=== PATIENT | male | born 1950 | race Caucasian/White ===

== ENCOUNTER 2023-06-09 14:42 | Inpatient (IN) ==
--- NOTE | 2023-06-09 15:04 | ED Triage Note ---
Date of Service June 09, 2023 Provider in Triage Author: Negro Gonzales History of Present Illness This patient was briefly evaluated while in triage. An abbreviated physical exam was performed. This patient is a 73-year-old Male who presents to the ED for evaluation of lower abdominal pain that has progressively worsened since this past Wednesday. The patient reports that his abdomen is now distended. He does have a prior history of diverticulitis and colectomy. Patient also has had a prior history of ruptured appendicitis. The patient was seen by his PCP yesterday, and started on Cipro 500 mg twice daily. The patient rates his discomfort a 2 out of 10 now, but initially had pain rated a 7 out of 10. Patient reports chills. He denies nausea. Physical Exam CONSTITUTIONAL: Healthy and well nourished. HEENT: Normocephalic, atraumatic. No scleral icterus or conjunctival injection. CARDIOVASCULAR: Regular rate and rhythm with no murmurs, rubs or gallops. GASTROINTESTINAL: Bowel sounds present in all quadrants. Patient has left lower quadrant tenderness to palpation. INTEGUMENTARY: No rash or other significant dermatologic conditions noted. HEMATOLOGIC: No ecchymosis or petechiae. PSYCHIATRIC: Positive affect. NEUROLOGIC: No focal neurologic deficits noted. Initial orders for labs and / or imaging were placed and patient was placed in the waiting area until a bed is available. Please see further documentation for the full ED course.
--- NOTE | 2023-06-09 16:04 | Emergency Department Note ---
Impression & Plan Small bowel obstruction, Leukocytosis, Abdominal pain ED Provider Note NAME: JIMMY MENESES AGE: 73 SEX: M : 1950 ARRIVES VIA: Walk-In INFORMANT: Patient ED PROVIDER(S): German Prather DO CHIEF COMPLAINT: abdominal pain HPI: Patient is a 73-year-old male who presents to the ER for abdominal pain which has been present for the past several days. He notes it got significantly worse on Wednesday. He saw his PCP and placed him on Cipro. Patient has been having abdominal fullness and nausea. He has not had a bowel movement since Wednesday. He is not passing any gas. Previous history of a ruptured appendectomy and a bowel resection. He notes this feels like his diverticulitis but a little worse. Currently he is comfortable. ADDITIONAL HISTORY OBTAINED: Per HPI Chronic Medical/Social Conditions Affecting Care: Per HPI PAST MEDICAL HISTORY:See Below PAST SURGICAL HISTORY:See Below FAMILY HISTORY:See Below SOCIAL HISTORY:See Below HOME MEDICATIONS:See Below ALLERGIES:See Below VITALS:See Below PHYSICAL EXAMINATION: GENERAL: Sitting up in bed, alert, well appearing, well nourished, no distress, non-toxic EYE EXAM: normal conjunctiva. OROPHARYNX: mucous membranes are moist LUNGS: Clear to auscultation. Normal chest wall mechanics HEART: no murmurs, S1 normal and S2 normal ABDOMEN: abdomen soft, non-tender, normo-active bowel sounds, no masses, no rebound or guarding. BACK: Back is symmetrical on inspection and there is no deformity, no midline tenderness, no CVA tenderness. SKIN: no rashes and no bruising UPPER EXTREMITIES: upper extremities are grossly normal. LOWER EXTREMITIES: No pitting edema. NEURO EXAM: Normal sensorium, cranial nerves II-XII grossly intact, normal speech, no gross weakness of arms, no gross weakness of legs. MEDICAL DECISION MAKING: Patient is a 73-year-old male who presents ER for the above-stated complaint. IV was established blood was obtained. Labs show mild leukocytosis of 13,000. No significant anemia. BMP with a creatinine 1.5. LFTs bilirubin was unremarkable. Lipase was normal. CT abdomen pelvis shows a high-grade small bowel obstruction. Patient was given morphine and Zofran. Discussed case with general surgery patient was evaluated by Haroldo Contreras. Discussed the case with the hospitalist for further evaluation management treatment and admission. NG placed by general surgery. KUB confirms placement. Consults/Care Managements Discussions: Per [facility] Triage Nursing notes reviewed. Limited review of prior medical records performed Vital Signs: reviewed and remarkable for HTN Differential diagnosis: Differential diagnoses includes but is not limited to gastritis, peptic ulcer disease, GERD, gallbladder disease, pancreatitis, small bowel obstruction, appendicitis, diverticulitis, hernia, urinary tract infection, torsion, perforation, trauma, infectious. ER treatment provided: See below Diagnostics interpreted by me include EKG and cardiac monitoring as listed below: -Cardiac Monitoring: An order was placed for continuous cardiac monitoring. The monitor shows a rate of 70 with sinus rhythm. -ECG: none -Laboratory studies:Interpreted by me as stated above in MDM and shown below. Imaging studies: Xrays: As interpreted by me:none CTs show: CT abdomen pelvis per my preliminary interpretation showed multiple areas of air-fluid levels and dilated bowel CT of the pelvis per radiology as described above in MDM high-grade small bowel obstruction Procedures:none Critical Care: None Past Med/Surg History Medical History Hypothyroidism Compressed cervical disc Dyslipidemia HTN (hypertension) Surgical History H/O hernia repair History of appendectomy Social History Smoking Status: Never smoker Preferred Language: Malawian Current Living Situation: Spouse current occupational status: employed 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 How many Children do You have: 3 Feels Safe at Home: Yes Allergies Allergies Allergy/AdvReac Type Severity Reaction Status Date / Time No Known Allergies Allergy Verified 06/09/23 20:00 Home Meds Home Medications Medication Instructions Recorded Confirmed atorvastatin 10 mg tablet (Lipitor) 10 mg PO HS 05/21/21 06/09/23 levothyroxine 50 mcg tablet 50 mcg PO DAILY 05/21/21 06/09/23 (Synthroid) [id number] 300 mcg-K 60 1 tab PO DAILY 05/21/21 06/09/23 mcg-lycop 600 mcg-lutein 300 mcg tablet (Centrum Silver Men) ciprofloxacin HCl 500 mg tablet 500 mg PO BID 06/09/23 06/09/23 fluticasone propionate 50 1 spray intranasal DAILY PRN 06/09/23 06/09/23 mcg/actuation nasal Congestion spray,suspension (Allergy Relief (fluticasone)) losartan 50 mg tablet 50 mg PO BID 06/09/23 06/09/23 meloxicam 15 mg tablet 15 mg PO DAILY PRN Pain 06/09/23 06/09/23 Previous Rx's Medication Instructions Recorded albuterol sulfate 90 mcg/actuation 2 puff inhalation Q6H PRN 09/23/21 aerosol inhaler Shortness Of Breath Or Wheezing #18 grams Results & Data (ED) Vital Signs Vital Signs - 24 hr 06/09/23 14:59 06/09/23 19:56 06/09/23 20:23 Temperature 36.8 C Temperature Source Temporal Artery Scan Pulse Rate 77 66 Pulse Rate [Apical] 69 Pulse Rhythm Regular Pulse Strength Normal Respiratory Rate 18 17 Respiratory Effort / Characteristics Non-Labored Non-Labored Respiratory Depth Normal Normal Respiratory Pattern Regular Blood Pressure 171/99 H Blood Pressure [Left Arm] 146/81 H Blood Pressure Mean 123 Blood Pressure Mean [Left Arm] 102 Blood Pressure Position Sitting Pulse Oximetry 98 95 Oxygen Delivery Method Room Air Room Air Sepsis Recent Fever Within 48 Hours No Sepsis New/Unexplained Change in Mental Status No Sepsis Action Taken by Nursing No Action Required Laboratory Data 06/09/23 16:09 06/09/23 16:09 Lab Results 06/09/23 06/09/23 Range/Units 16:09 16:56 WBC 13.13 H (4.8-10.8) K/ul RBC 4.88 (4.70-6.10) M/uL Hgb 15.7 (14.0-18.0) g/dl POC Hgb 16.0 (14.0-18.0) g/dl Hct 46.1 (42.0-52.0) % POC Hct 47 (42-52) % MCV 94.5 (80.0-100.0) fL MCH 32.2 (25.0-34.0) pg MCHC 34.1 (32.0-36.0) g/dL RDW Std Deviation 46.8 H (36.4-46.3) fL RDW Coeff of Santhosh 13.5 (11.5-14.5) % Plt Count 279 (130-400) K/uL MPV 11.2 (9.4-12.4) fL Immature Gran % (Auto) 0.4 % Neut % (Auto) 91.8 % Lymph % (Auto) 4.1 % [place] % (Auto) 3.5 % Eos % (Auto) 0.1 % Baso % (Auto) 0.1 % Neut # (Auto) 12.06 H (1.40-6.50) K/uL Lymph # (Auto) 0.54 L (1.20-3.40) K/uL [place] # (Auto) 0.46 (0.11-0.59) K/uL Eos # (Auto) 0.01 (0.00-0.50) K/uL Baso # (Auto) 0.01 (0.00-0.20) K/uL Immature Gran # (Auto) 0.05 (0.01-0.20) K/uL POC Sodium 137 (135-144) mmol/L Sodium 137 (136-145) mmol/L POC Potassium 5.0 (3.3-5.0) mmol/L Potassium 4.5 (3.5-5.1) mmol/L POC Chloride 99 L (101-112) mmol/L Chloride 99 (98-107) mmol/L Carbon Dioxide 28 (21-32) mmol/L POC Total CO2 29 (24-31) mmol/L Anion Gap 10 (3-11) POC Anion Gap 15.0 L (16-25) mmol/L POC BUN 29 H (7-18) mg/dl BUN 25 H (6-23) mg/dl Creatinine 1.55 H (0.6-1.4) mg/dl POC Creatinine 1.7 H (0.6-1.3) mg/dl Est Cr Clr Drug Dosing Not Reportable Est GFR ( Amer) 50.7 ml/min Est GFR (Non-Af Amer) 43.8 ml/min BUN/Creatinine Ratio 16.1 (10-20) Glucose 134 H (70-99(Fasting)) mg/dl POC Glucose (other) 145 H (70-99) mg/dl Calcium 10.5 H (8.6-10.3) mg/dl POC Ioniz Calcium Melvi 1.12 (1.12-1.32) mmol/l Magnesium 2.2 (1.7-2.4) mg/dl Total Bilirubin 1.5 H (0.2-1.0) mg/dl AST 19 (13-39) U/L ALT 18 (7-52) U/L Alkaline Phosphatase 47 (34-104) U/L Total Protein 8.0 (6.0-8.3) gm/dl Albumin 4.7 (3.4-5.0) gm/dl Globulin 3.3 (2.5-4.0) gm/dl Albumin/Globulin Ratio 1.4 (0.9-2) Lipase 18 (11-82) U/L Administered Medications Dextrose/Sodium Chloride (D5w And Nss) 1,000 mls @ 125 mls/hr IV .Q8H ISAURO Stop: 07/09/23 20:14 Last Admin: 06/09/23 20:54 Dose: 125 mls/hr Documented By: STAS Discontinued Medications Sodium Chloride (Nss) 500 mls @ 999 mls/hr IV .Q31M ONE Stop: 06/09/23 15:31 Last Infusion: 06/09/23 18:31 Dose: Infused Documented By: Admin: 06/09/23 18:31 Dose: 999 mls/hr Documented By: KATHERINE Sodium Chloride (Nss) 1,000 mls @ 999 mls/hr IV .Q1H1M ONE Stop: 06/09/23 17:00 Last Infusion: 06/09/23 21:16 Dose: Infused Documented By: Admin: 06/09/23 18:31 Dose: 999 mls/hr Documented By: KATHERINE Ioversol (Optiray 320 100ml) 92 ml IV ONCE ONE Stop: 06/09/23 18:00 Last Admin: 06/09/23 18:00 Dose: 92 ml Documented By: CARROLL Lidocaine HCl (Lidocaine 2% Jelly 5 Ml Tube) Confirm Administered Dose 5 ml EXT .STK-MED ONE Stop: 06/09/23 20:08 Last Admin: 06/09/23 20:29 Dose: 5 ml Documented By: STAS Morphine Sulfate (Morphine Sulfate 4 Mg/Ml 1 Ml Carp\\Vial) 4 mg IV NOW STA Stop: 06/09/23 19:20 Last Admin: 06/09/23 20:29 Dose: Not Given Documented By: STAS Ondansetron HCl (Ondansetron Inj 2 Mg/Ml 2 Ml Vial) 4 mg IV NOW STA Stop: 06/09/23 19:20 Last Admin: 06/09/23 19:52 Dose: 4 mg Documented By: STAS Imaging Data Radiologist's Impression: Abdomen/Pelvis CT 06/09/23 15:[address] WITH IV CONTRAST CT DOSE: 1272.93 mGy.cm HISTORY: Acute generalized abdominal pain Abd pain, h/o diverticulitis TECHNIQUE: Multiaxial CT images of the abdomen and pelvis were performed following the IV administration of 92 cc of Optiray, A dose lowering technique was utilized adhering to the principles of ALARA. COMPARISON STUDY: None. FINDINGS: Mild atelectasis of the lung bases. No free air. Spleen, mildly atrophic pancreas and adrenal glands. Unremarkable gallbladder. The liver is within normal limits. Patency of the hepatic and portal veins. Mild nonspecific bilateral perinephric stranding. No hydronephrosis. Prostatomegaly. Mild bladder wall thickening with partial distention. Atherosclerosis of the aorta and branch vessels. No lymphadenopathy. Distal esophageal wall thickening. The stomach is fluid-filled and distended. High-grade small bowel obstruction with air and fluid-filled dilated loops of small bowel measuring up to 5.7 cm. Trace ascites. Colonic diverticulosis. Anastomosis of the sigmoid colon. Appendectomy. Transition point of the small bowel obstruction is present within the abdominal right lower quadrant on image 283, likely on the basis of adhesions with decompressed loops seen distally. Anterior abdominal wall herniorrhaphy. Tiny fat filled umbilical hernia. Lumbar levoscoliosis. No acute fracture. IMPRESSION: 1. High-grade small bowel obstruction with the transition point within the abdominal right lower quadrant, likely on the basis of adhesions. Trace ascites with mild interloop edema. 2. No pneumatosis or pneumoperitoneum. 3. Incidental findings as above. ACT 112: Negative or not required by law. The above report was generated using voice recognition software. It may contain grammatical, syntax or spelling errors. Electronically signed by: Manuel Oneal M.D. 06/09/2023 6:54 PM Discharge Plan Visit Data Chief Complaint: Abdominal Pain Stated Complaint: ABD PAIN, ED Provider: German Prather Discharge Problem: Small bowel obstruction, Leukocytosis, Abdominal pain Forms Stand Alone Forms: My [employer] Prescriptions Prescriptions: No Action Centrum Silver Men 300-600-300 mcg tablet 1 tab PO DAILY atorvastatin [Lipitor] 10 mg tablet 10 mg PO HS levothyroxine [Synthroid] 50 mcg tablet 50 mcg PO DAILY albuterol sulfate 90 mcg/actuation HFA aerosol inhaler 2 puff inhalation Q6H PRN (Reason: Shortness Of Breath Or Wheezing) Qty: 18 3RF losartan 50 mg tablet 50 mg PO BID Rx Instructions: RECENTLY CHANGED TO BID meloxicam 15 mg Tablet 15 mg PO DAILY PRN (Reason: Pain) Rx Instructions: PER PT "BEEN USING DAILY D/T SCIATICA PAIN". ciprofloxacin HCl 500 mg tablet 500 mg PO BID Rx Instructions: STARTED 06/08/23 FOR 7 DAYS fluticasone propionate [Allergy Relief (fluticasone)] 50 mcg/actuation spray,suspension 1 spray intranasal DAILY PRN (Reason: Congestion) Rx Instructions: administer into each nostril once daily Referrals Referrals: Omar Nelson [Primary Care Provider] - Discharge Problem: Leukocytosis Qualifiers: Leukocytosis type: unspecified Qualified Code(s): D72.829 - Elevated white blood cell count, unspecified Abdominal pain Qualifiers: Abdominal location: unspecified location Qualified Code(s): R10.9 - Unspecified abdominal pain
[2023-06-09 16:36] LABS: Hematocrit (blood only) 46.1 % (42.0-52.0); Hemoglobin 15.7 g/dl (14.0-18.0); Mean Corpuscular Hemoglobin 32.2 pg (25.0-34.0); Mean Corpuscular Hgb Conc 34.1 g/dL (32.0-36.0); Mean Corpuscular Volume 94.5 fL (80.0-100.0); Mean Platelet Volume 11.2 fL (9.4-12.4); Platelet Count 279 K/uL (130-400); RDW Coefficient of Variation 13.5 % (11.5-14.5); RDW Standard Deviation 46.8 fL (36.4-46.3); Red Blood Count 4.88 M/uL (4.70-6.10); White Blood Count 13.13 K/ul (4.8-10.8)
[2023-06-09 17:04] LABS: Albumin Level 4.7 gm/dl (3.4-5.0); Anion Gap 10 (3-11); Bilirubin,Total 1.5 mg/dl (0.2-1.0); Calcium 10.5 mg/dl (8.6-10.3); Carbon Dioxide 28 mmol/L (21-32); Chloride 99 mmol/L (98-107); Potassium 4.5 mmol/L (3.5-5.1); Sodium 137 mmol/L (136-145)
[2023-06-09 17:08] LABS: Basophils # (auto) 0.01 K/uL (0.00-0.20); Basophils % (auto) 0.1 %; Eosinophils # (auto) 0.01 K/uL (0.00-0.50); Eosinophils % (auto) 0.1 %; Immature Granulocytes # (auto) 0.05 K/uL (0.01-0.20); Immature Granulocytes % (auto) 0.4 %; Lymphocytes # (auto) 0.54 K/uL (1.20-3.40); Lymphocytes % (auto) 4.1 %; Monocytes # (auto) 0.46 K/uL (0.11-0.59); Monocytes % (auto) 3.5 %; Neutrophils # (auto) 12.06 K/uL (1.40-6.50); Neutrophils % (auto) 91.8 %
[2023-06-09 17:10] LABS: Alanine Aminotransferase 18 U/L (7-52); Albumin Globulin Ratio 1.4 (0.9-2); Alkaline Phosphatase 47 U/L (34-104); Aspartate Aminotransferase 19 U/L (13-39); BUN Creatinine Ratio 16.1 (10-20); Blood Urea Nitrogen 25 mg/dl (6-23); Est GFR (African American) 50.7 ml/min; Est GFR (Non-African American) 43.8 ml/min; Globulin 3.3 gm/dl (2.5-4.0); Glucose 134 mg/dl (70-99(Fasting)); Lipase 18 U/L (11-82)
[2023-06-09 17:13] LABS: iSTAT Creatinine 1.7 mg/dl (0.6-1.3); iSTAT Ionized Calcium 1.12 mmol/l (1.12-1.32)
[2023-06-09] MEDS: OPTIRAY 320 100ml IV ONE (18:00)
[2023-06-09] MEDS: SODIUM CHLORIDE 0.9% 500 ML IV ONE (18:31)
[2023-06-09] MEDS: SODIUM CHLORIDE 0.9% 1,000 ML IV ONE (18:31)
--- NOTE | 2023-06-09 18:56 | CT Scan Report ---
ABDOMEN AND PELVIS CT WITH IV CONTRAST CT DOSE: 1272.93 mGy.cm HISTORY: Acute generalized abdominal pain Abd pain, h/o diverticulitis TECHNIQUE: Multiaxial CT images of the abdomen and pelvis were performed following the IV administrat ion of 92 cc of Optiray, A dose lowering technique was utilized adhering to the principles of ALARA. COMPARISON STUDY: None. FINDINGS: Mild atelectasis of the lung bases. No free air. Spleen, mildly atrophic pancreas and adren al glands. Unremarkable gallbladder. The liver is within normal limits. Patency of the hepatic and po rtal veins. Mild nonspecific bilateral perinephric stranding. No hydronephrosis. Prostatomegaly. Mild bladder wall thickening with partial distention. Atherosclerosis of the aorta and branch vessels. No lymphadenopathy. Distal esophageal wall thickening. The stomach is fluid-filled and distended. High-grade small bowel obstruction with air and fluid-filled dilated loops of small bowel measuring up to 5.7 cm. Trace asci mitali. Colonic diverticulosis. Anastomosis of the sigmoid colon. Appendectomy. Transition point of the small bowel obstruction is present within the abdominal right lower quadrant on image 283, likely on the basis of adhesions with decompressed loops seen distally. Anterior abdominal wall herniorrhaphy. Tiny fat filled umbilical hernia. Lumbar levoscoliosis. No acute fracture. IMPRESSION: 1. High-grade small bowel obstruction with the transition point within the abdominal right lower quad rant, likely on the basis of adhesions. Trace ascites with mild interloop edema. 2. No pneumatosis or pneumoperitoneum. 3. Incidental findings as above. ACT 112: Negative or not required by law. The above report was generated using voice recognition software. It may contain grammatical, syntax o r spelling errors. Electronically signed by: Manuel Oneal M.D. 06/09/2023 6:54 PM
[2023-06-09] MEDS: ONDANSETRON INJ 2 MG/ML 2 ML VIAL IV STA (19:52)
--- NOTE | 2023-06-09 20:12 | Surgery Consultation ---
Date of Consultation June 09, 2023 Assessment & Plan (1) Small bowel obstruction: I discussed with the treating emergency room physician and the patient is being admitted on the hospitalist service. From a surgical perspective we recommend the following: Implement n.p.o. status Provide IV fluid for hydration Due to the nature of the high-grade small bowel obstruction and the fact that the patient's stomach appears distended on CAT scan I feel he would benefit from an NG tube placed to low continuous suction the patient is agreeable to this modality (this has been ordered) Follow serial labs Follow serial physical exams I discussed with the patient that his small bowel obstruction is likely the base of adhesions. At the present time the patient is nontoxic-appearing so that I therefore feel conservative management with the plan outlined above is warranted. I did discuss with the patient and his family that if his bowels do not open up within the next 2 to 3 days consideration be given to performing further imaging of his abdomen utilizing oral contrast Additional recommendations be forthcoming based on his clinical course as it unfolds Supervising Physician Co-Signing Physician Notes d/w ROMA Ulloa, labs and imaging reviewed, agree with above. H/O multiple abd surgeries, presents with abd pain and bloating, obstipation. CT personally reviewed and interpreted, agree with sbo. Will place ng, admit to medicine, marino in am. may eventually need contrasted study. History of Present Illness Reason for Consultation: Small bowel obstruction History of Present Illness This is a 73-year-old male who presented to the emergency department secondary to abdominal pain. Patient notes that he has had multiple abdominal surgeries. He has had a colon resection approximately 2 years ago secondary to recurrent diverticulitis (this was a 1 stage procedure). Patient also notes that he had an exploratory laparotomy in 2001 secondary to a perforated appendectomyhe says he only had to have his appendix removed at this time. The patient also notes that he has had a ventral herniorrhaphy. Approximate 3 days ago the patient developed some cramp-like abdominal pain in his lower abdomen. Because of his history of diverticulitis he has a standing order from his outpatient physicians to take empiric ciprofloxacin which she began taking. Despite taking ciprofloxacin the patient's cramp-like abdominal pain began to get progressively worse over the past 3 days. He notes his most recent bowel movement was approximately 3 days ago just about the time of the onset of his symptoms. He notes that since that time he has not passed any flatus. He denies any fevers, shakes, or chills. He does report nausea without vomiting. He says he has not had much in the way of oral intake for 3 days but he has been sipping water continuously throughout the day most recently about an hour ago. He notes that he has never had a small bowel obstruction in the past. The patient notes that he leads an active lifestyle and can easily walk a mile on a flat surface and he can negotiate steps and inclines without chest pain or shortness of breath. Since arrival to the hospital the patient has had labs and imaging which independent reviewed. He did have a CT scan of the abdomen pelvis. This study showed the patient had findings concerning for high-grade small bowel obstruction with a transition point in the right lower quadrant abdomen, likely on the basis of adhesions. There is some trace ascites with some mild interloop edema. There is no evidence of pneumatosis or pneumoperitoneum. A CBC revealed white blood cell count was elevated at 13.1. Hemoglobin and hematocrit along with the platelet count were normal. Chemistry profile showed sodium and potassium were normal. His BUN and creatinine were 25 and 1.5. Patient did not have any elevation of his lipase. His transaminases and alkaline phosphatase were normal. He had a slight elevation of his bilirubin at 1.5. At the time of my interview he was resting comfortably in bed he was no distress. Allergies Allergy/AdvReac Type Severity Reaction Status Date / Time No Known Allergies Allergy Verified 06/09/23 20:00 Home Medications Medication Instructions Recorded Confirmed Type atorvastatin 10 mg tablet (Lipitor) 10 mg PO HS 05/21/21 06/09/23 History levothyroxine 50 mcg tablet 50 mcg PO DAILY 05/21/21 06/09/23 History (Synthroid) [id number] 300 mcg-K 60 1 tab PO DAILY 05/21/21 06/09/23 History mcg-lycop 600 mcg-lutein 300 mcg tablet (Centrum Silver Men) albuterol sulfate 90 mcg/actuation 2 puff inhalation Q6H PRN 09/23/21 06/09/23 Rx aerosol inhaler Shortness Of Breath Or Wheezing #18 grams ciprofloxacin HCl 500 mg tablet 500 mg PO BID 06/09/23 06/09/23 History fluticasone propionate 50 1 spray intranasal DAILY PRN 06/09/23 06/09/23 History mcg/actuation nasal Congestion spray,suspension (Allergy Relief (fluticasone)) losartan 50 mg tablet 50 mg PO BID 06/09/23 06/09/23 History meloxicam 15 mg tablet 15 mg PO DAILY PRN Pain 06/09/23 06/09/23 History Patient History Medical History Hypothyroidism Compressed cervical disc Dyslipidemia HTN (hypertension) Surgical History H/O hernia repair History of appendectomy Social History Smoking Status: Never smoker Preferred Language: Mohawk Current Living Situation: Spouse current occupational status: employed current occupation: [employer], [employer]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 How many Children do You have: 3 Feels Safe at Home: Yes Review of Systems Constitutional: no fever and no chills Ear, Nose, Mouth, Throat: no hearing loss Respiratory: no cough and no dyspnea Cardiovascular: no chest pain Gastrointestinal: as per Subjective / HPI Genitourinary: no dysuria Musculoskeletal: no back pain Integumentary: no rash Neurologic: no localized weakness Physical Exam Constitutional: WD/WN, vitals as above Eyes: no conjunctival abnormality ENMT: Ears: no hearing impairment and no external ear abnormality Mouth: no oropharynx abnormality Neck: trachea midline Respiratory: normal respiratory effort, lungs clear to auscultation Cardiovascular: Rate/Rhythm: regular rate and regular rhythm Vessels: dorsalis pedis pulses present and radial pulses present Gastrointestinal (Abdomen): Abdomen is moderately distended. Bowel sounds are hypoactive. The patient had a well-healed midline incision from previous surgery. I did not appreciate any hernias. There is no tympany to percussion. The patient did have some generalized pain with palpation. He had no guarding. He had no rebound tenderness. Musculoskeletal: No calf tenderness Skin: no rashes Neurologic: moves all extremities Psychiatric: A+Ox3, euthymic affect Results & Data Vital Signs (Past 12 Hours) Vital Signs Temp Pulse Resp BP Pulse Ox O2 Del Method 06/09/23 19:56 66 06/09/23 14:59 36.8 C 77 18 171/99 H 98 Room Air PG Care Time/CCT Total # of Minutes Spent Total Time Spent with Patient: Total time spent is greater than 50% in coordination of care (as documented) at patient's floor/unit and/or counseling patient: Coding Level of Care Code 32751 INT INP/OBS CARE 3/75MIN Diagnoses Small bowel obstruction K56.609
[2023-06-09 20:24] LABS: Magnesium 2.2 mg/dl (1.7-2.4)
[2023-06-09] MEDS: MoRPHine SULFATE 4 MG/ML 1 ML CARP\\VIAL IV STA (20:29)
[2023-06-09] MEDS: LIDOCAINE 2% JELLY 5 ML TUBE EXT ONE (20:29)
[2023-06-09] MEDS: D5W AND NSS 1,000 ML IV SCH (20:54)
--- NOTE | 2023-06-09 21:38 | History & Physical Report ---
Date of Service June 09, 2023 Assessment & Plan (1) Small bowel obstruction: Plan: 73-year-old male with past medical history significant for asthma/copd?, hypertension, hyperlipidemia, hypothyroidism, history of ruptured appendicitis, history of recurrent diverticulitis s/p colectomy presents with abdominal pain since Wednesday morning 3 AM. Patient says Wednesday morning 3 woke up with severe abdominal pain 10/10 in severity. Pain was located in the lower abdomen and there was no radiation. At the time he had a bowel movement. Patient because of history of diverticulitis started taking Cipro. On Wednesday seems he was prescribed Cipro and he felt well . And again today morning pain started coming back associated with nausea which prompted him to come to the ER and found to have a high-grade small bowel obstruction. No bowel movement since last Wednesday and not passing any gas. Not eating since Wednesday.Was feeling cold and sweaty. Denies any headache. Recently had cough which resolved. Having back pain for last few days. No chest pain or shortness of breath. Normal micturition. No rash. Ambulates okay. Currently resting comfortably and hemodynamically stable. In the ER s/p NG tube and feeling much better. Small bowel obstruction CT scan showing high-grade small bowel obstruction S/p NG tube N.p.o. IV fluids, IV Tylenol as needed, IV antiemetics as needed Surgery consult Follow KUB in a.m. Hypertension Holding losartan until able to take p.o. IV hydralazine as needed Kwasi Cr 1.5 avoid nephrotoxic agents getting fluids will follow repeat labs. Hyperlipidemia Holding statin for now History of asthma/COPD Continue home inhalers as needed Currently stable Hypothyroidism Holding p.o. Synthyroid and restart when able to take p.o. If n.p.o. status prolonged will change to IV Synthroid Mild hypercalcemia possibly from dehydration will follow repeat labs. Hx of recurrent diverticulitis s/p surgery by Dr.Neil Darius Borges at [facility]. Total bilirubin 1.5 ast,alt and alk phosp ok will follow repeat labs. DVT prophylaxis Heparin subcu Disposition Medical floor Full code History of Present Illness Chief Complaint: Abdominal pain Primary Care Provider: Omar Omar 73-year-old male with past medical history significant for asthma/copd?, hyp ertension, hyperlipidemia, hypothyroidism, history of ruptured appendicitis, history of recurrent diverticulitis s/p colectomy presents with abdominal pain since Wednesday 3 AM. Patient says Wednesday 3 woke up with severe abdominal pain 10/10 in severity. Pain was located in the lower abdomen and there was no radiation. At the time he had a bowel movement. Patient because of history of diverticulitis started taking Cipro. On Wednesday seems he was prescribed Cipro and he felt well . And again today morning pain started coming back associated with nausea which prompted him to come to the ER and found to have a high-grade small bowel obstruction. No bowel movement since last Wednesday and not passing any gas. Not eating since Wednesday.Was feeling cold and sweaty. Denies any headache. Recently had cough which resolved. Having back pain for last few days. No chest pain or shortness of breath. Normal micturition. No rash. Ambulates okay. Currently resting com fortably and hemodynamically stable. In the ER s/p NG tube and feeling much better. Past medical history. As mentioned above Past surgical history. Ruptured appendicitis. About 12 inch colectomy for recurrent diverticulitis. Seems incisional hernia repair. Social history. Smoked on and off for 50 years. Quit smoking 6 to 7 years ago. Alcohol social drinking. Family history. Father had cancer. Mother had heart disease and diabetes. Brother has diabetes. Allergies Allergy/AdvReac Type Severity Reaction Status Date / Time No Known Allergies Allergy Verified 06/09/23 20:00 Home Medications Medication Instructions Recorded Confirmed Type atorvastatin 10 mg tablet (Lipitor) 10 mg PO HS 05/21/21 06/09/23 History levothyroxine 50 mcg tablet 50 mcg PO DAILY 05/21/21 06/09/23 History (Synthroid) udflekdy-[id number] 300 mcg-K 60 1 tab PO DAILY 05/21/21 06/09/23 History mcg-lycop 600 mcg-lutein 300 mcg tablet (Centrum Silver Men) albuterol sulfate 90 mcg/actuation 2 puff inhalation Q6H PRN 09/23/21 06/09/23 Rx aerosol inhaler Shortness Of Breath Or Wheezing #18 grams ciprofloxacin HCl 500 mg tablet 500 mg PO BID 06/09/23 06/09/23 History fluticasone propionate 50 1 spray intranasal DAILY PRN 06/09/23 06/09/23 History mcg/actuation nasal Congestion spray,suspension (Allergy Relief (fluticasone)) losartan 50 mg tablet 50 mg PO BID 06/09/23 06/09/23 History meloxicam 15 mg tablet 15 mg PO DAILY PRN Pain 06/09/23 06/09/23 History Past Med/Surg History Medical History Hypothyroidism Compressed cervical disc Dyslipidemia HTN (hypertension) Surgical History H/O hernia repair History of appendectomy Social History Smoking Status: Former smoker Tobacco Type: Cigarettes Second Hand Exposure: Yes; Do You Dip or Chew Tobacco: No; Tobacco Cessation Education Requested by Patient: No Hx Alcohol Use: Yes Alcohol type: beer, wine and hard liquor Hx Substance Use: No Preferred Language: Sinhala Communication Ability: Effective Home Specialist Required: No Beliefs That Will Affect Care: None Current Living Situation: Spouse current occupational status: employed current occupation: [employer], [employer]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 ENT- oropharynx clear Neck- supple, no JVD, no carotid bruit Lungs- clear to auscultation no wheezing or crackles. Heart- regular rate and rhythm; no murmur, no gallop. Abdomen- absent bowel sounds, soft, mild tenderness in middle lower abdomen.no guarding or rigidity, mild distension. Extremities- no pretibial edema, no erythema seen Neuro- alert, oriented ; PERRL, no facial palsy; no dysarthria; Skin- warm & dry Results & Data Results & Data Vital Signs (Past 12 Hours) Vital Signs Temp Pulse Pulse Resp BP BP Pulse Ox 06/09/23 20:23 69 17 146/81 H 95 06/09/23 19:56 66 06/09/23 14:59 36.8 C 77 18 171/99 H 98 O2 Del Method 03/13/24 20:23 Room Air 06/09/23 19:56 06/09/23 14:59 Room Air Diagnostic Findings Laboratory Results WBC 13.13 K/ul (4.8-10.8) H 06/09/23 16:09 RBC 4.88 M/uL (4.70-6.10) 06/09/23 16:09 Hgb 15.7 g/dl (14.0-18.0) 06/09/23 16:09 POC Hgb 16.0 g/dl (14.0-18.0) 06/09/23 16:56 Hct 46.1 % (42.0-52.0) 06/09/23 16:09 POC Hct 47 % (42-52) 06/09/23 16:56 MCV 94.5 fL (80.0-100.0) 06/09/23 16:09 MCH 32.2 pg (25.0-34.0) 06/09/23 16:09 MCHC 34.1 g/dL (32.0-36.0) 06/09/23 16:09 RDW Std Deviation 46.8 fL (36.4-46.3) H 06/09/23 16:09 RDW Coeff of Santhosh 13.5 % (11.5-14.5) 06/09/23 16:09 Plt Count 279 K/uL (130-400) 06/09/23 16:09 MPV 11.2 fL (9.4-12.4) 06/09/23 16:09 Immature Gran % (Auto) 0.4 % 06/09/23 16:09 Neut % (Auto) 91.8 % 06/09/23 16:09 Lymph % (Auto) 4.1 % 06/09/23 16:09 Summers % (Auto) 3.5 % 06/09/23 16:09 Eos % (Auto) 0.1 % 06/09/23 16:09 Baso % (Auto) 0.1 % 06/09/23 16:09 Neut # (Auto) 12.06 K/uL (1.40-6.50) H 06/09/23 16:09 Lymph # (Auto) 0.54 K/uL (1.20-3.40) L 06/09/23 16:09 Summers # (Auto) 0.46 K/uL (0.11-0.59) 06/09/23 16:09 Eos # (Auto) 0.01 K/uL (0.00-0.50) 06/09/23 16:09 Baso # (Auto) 0.01 K/uL (0.00-0.20) 06/09/23 16:09 Immature Gran # (Auto) 0.05 K/uL (0.01-0.20) 06/09/23 16:09 POC Sodium 137 mmol/L (135-144) 06/09/23 16:56 Sodium 137 mmol/L (136-145) 06/09/23 16:09 POC Potassium 5.0 mmol/L (3.3-5.0) 06/09/23 16:56 Potassium 4.5 mmol/L (3.5-5.1) 06/09/23 16:09 POC Chloride 99 mmol/L (101-112) L 06/09/23 16:56 Chloride 99 mmol/L (98-107) 06/09/23 16:09 Carbon Dioxide 28 mmol/L (21-32) 06/09/23 16:09 POC Total CO2 29 mmol/L (24-31) 06/09/23 16:56 Anion Gap 10 (3-11) 06/09/23 16:09 POC Anion Gap 15.0 mmol/L (16-25) L 06/09/23 16:56 POC BUN 29 mg/dl (7-18) H 06/09/23 16:56 BUN 25 mg/dl (6-23) H 06/09/23 16:09 Creatinine 1.55 mg/dl (0.6-1.4) H 06/09/23 16:09 POC Creatinine 1.7 mg/dl (0.6-1.3) H 06/09/23 16:56 Est Cr Clr Drug Dosing Not Reportable 06/09/23 16:09 Est GFR ( Amer) 50.7 ml/min 06/09/23 16:09 Est GFR (Non-Af Amer) 43.8 ml/min 06/09/23 16:09 BUN/Creatinine Ratio 16.1 (10-20) 06/09/23 16:09 Glucose 134 mg/dl (70-99(Fasting)) H 06/09/23 16:09 POC Glucose (other) 145 mg/dl (70-99) H 06/09/23 16:56 Calcium 10.5 mg/dl (8.6-10.3) H 06/09/23 16:09 POC Ioniz Calcium Melvi 1.12 mmol/l (1.12-1.32) 06/09/23 16:56 Magnesium 2.2 mg/dl (1.7-2.4) 06/09/23 16:09 Total Bilirubin 1.5 mg/dl (0.2-1.0) H 06/09/23 16:09 AST 19 U/L (13-39) 06/09/23 16:09 ALT 18 U/L (7-52) 06/09/23 16:09 Alkaline Phosphatase 47 U/L (34-104) 06/09/23 16:09 Total Protein 8.0 gm/dl (6.0-8.3) 06/09/23 16:09 Albumin 4.7 gm/dl (3.4-5.0) 06/09/23 16:09 Globulin 3.3 gm/dl (2.5-4.0) 06/09/23 16:09 Albumin/Globulin Ratio 1.4 (0.9-2) 06/09/23 16:09 Lipase 18 U/L (11-82) 06/09/23 16:09 Impressions Abdomen/Pelvis CT 06/09/23 15:[address] WITH IV CONTRAST CT DOSE: 1272.93 mGy.cm HISTORY: Acute generalized abdominal pain Abd pain, h/o diverticulitis TECHNIQUE: Multiaxial CT images of the abdomen and pelvis were performed following the IV administration of 92 cc of Optiray, A dose lowering technique was utilized adhering to the principles of ALARA. COMPARISON STUDY: None. FINDINGS: Mild atelectasis of the lung bases. No free air. Spleen, mildly atrophic pancreas and adrenal glands. Unremarkable gallbladder. The liver is within normal limits. Patency of the hepatic and portal veins. Mild nonspecific bilateral perinephric stranding. No hydronephrosis. Prostatomegaly. Mild bladder wall thickening with partial distention. Atherosclerosis of the aorta and branch vessels. No lymphadenopathy. Distal esophageal wall thickening. The stomach is fluid-filled and distended. High-grade small bowel obstruction with air and fluid-filled dilated loops of small bowel measuring up to 5.7 cm. Trace ascites. Colonic diverticulosis. Anastomosis of the sigmoid colon. Appendectomy. Transition point of the small bowel obstruction is present within the abdominal right lower quadrant on image 283, likely on the basis of adhesions with decompressed loops seen distally. Anterior abdominal wall herniorrhaphy. Tiny fat filled umbilical hernia. Lumbar levoscoliosis. No acute fracture. IMPRESSION: 1. High-grade small bowel obstruction with the transition point within the abdominal right lower quadrant, likely on the basis of adhesions. Trace ascites with mild interloop edema. 2. No pneumatosis or pneumoperitoneum. 3. Incidental findings as above. ACT 112: Negative or not required by law. The above report was generated using voice recognition software. It may contain grammatical, syntax or spelling errors. Electronically signed by: Manuel Oneal M.D. 06/09/2023 6:54 PM Code Status & VTE Plan VTE Prophylaxis Plan VTE Prophylaxis will be ordered: Yes
[2023-06-10] MEDS ORDERED: hydrALAZINE HCL 20 MG/ML VIAL IV PRN (00:34)
[2023-06-10] MEDS ORDERED: ONDANSETRON INJ 2 MG/ML 2 ML VIAL IV PRN (00:34)
[2023-06-10] MEDS: HEPARIN SOD 5,000 UNIT/0.5 ML VIAL SQ SCH (01:33)
[2023-06-10 06:44] LABS: Hematocrit (blood only) 36.7 % (42.0-52.0); Hemoglobin 12.4 g/dl (14.0-18.0); Mean Corpuscular Hemoglobin 31.5 pg (25.0-34.0); Mean Corpuscular Hgb Conc 33.8 g/dL (32.0-36.0); Mean Corpuscular Volume 93.1 fL (80.0-100.0); Platelet Count 214 K/uL (130-400); RDW Coefficient of Variation 13.5 % (11.5-14.5); Red Blood Count 3.94 M/uL (4.70-6.10); White Blood Count 8.31 K/ul (4.8-10.8)
[2023-06-10 07:03] LABS: BUN Creatinine Ratio 18.8 (10-20); Calcium 8.6 mg/dl (8.6-10.3); Creatinine Clr Calc Pharmacy 49.6 ml/min; Est GFR (African American) 55.4 ml/min; Est GFR (Non-African American) 47.8 ml/min; Phosphorus 3.5 mg/dl (2.5-4.9); Potassium 3.5 mmol/L (3.5-5.1)
--- NOTE | 2023-06-10 07:20 | XRay Report ---
KUB HISTORY: Status post placement of an enteric tube for nj tube COMPARISON: CT 06/09/2023 FINDINGS: Status post placement of enteric tube with distal tip projected over the gastric body. Air filled stomach. Persistent small bowel obstruction. Contrast noted within the renal collecting system s, ureters and urinary bladder. No renal calculi. No ureteral calculi. No pneumoperitoneum or pneuma tosis. Lumbar levoscoliosis. No fracture. IMPRESSION: 1. Status post placement of an enteric tube with distal tip projected over the gastric body. 2. Persistent small bowel obstruction. ACT 112: Negative or not required by law. The above report was generated using voice recognition software. It may contain grammatical, syntax o r spelling errors. Electronically signed by: Manuel Oneal M.D. 06/10/2023 7:19 AM
[2023-06-10] MEDS ORDERED: MoRPHine SULFATE 2 MG/ML CARP IV PRN (08:00)
[2023-06-10] MEDS ORDERED: ALBUTEROL HFA 8 GM INHALER INH PRN (08:10)
[2023-06-10] MEDS ORDERED: FLUTICASONE PROPIONATE NA SPR 16 GM BTL PRN (08:10)
--- NOTE | 2023-06-10 09:07 | XRay Report ---
KUB HISTORY: Small bowel obstruction. Follow-up. COMPARISON: KUB 06/09/2023. FINDINGS: The nasogastric tube remains within the stomach. Dilated gas-filled loops of small bowel mccormack ve slightly progressed consistent with the patient's history of a small bowel obstruction. The lung b ases are clear. Rectosigmoid anastomosis again noted. Contrast seen within the bladder from the recen t CT examination. No renal calculi. No ureteral calculi. No pneumoperitoneum or pneumatosis. IMPRESSION: 1. Dilated gas-filled loops of small bowel have slightly progressed consistent with the patient's kno wn small bowel obstruction. 2. Nasogastric tube remains within the stomach. ACT 112: Negative or not required by law. Electronically signed by: Edouard Martini M.D. 06/10/2023 9:06 AM
[2023-06-10] MEDS: POTASSIUM CHLORIDE / WTR 10 MEQ/100 ML PLCT IV SCH (09:19)
[2023-06-10] MEDS: D5W AND 1/2NSS + 20MEQ KCL 20 MEQ/1,000 ML BAG IV SCH (09:19)
--- NOTE | 2023-06-10 12:24 | Surgery Progress Note ---
Date of Service June 10, 2023 Assessment & Plan (1) Small bowel obstruction: Plan: Pt here with abdominal pain and CT evidence concerning for SBO NGT was placed, initially 2 L drained, now 25cc documented He reports feeling better in regards to pain and nausea KUB this AM showed small bowel distention and ongoing concern for SBO Would keep NGT in place until meaningful return of bowel function If no improvement over next couple days may consider SBFT, but symptomatically patient appears to be improving Admission and Anticipated Discharge Date Admission Date: June 09, 2023 Supervising Physician Co-Signing Physician Notes Patient seen and examined, labs and imaging reviewed, agree with above. Admitted overnight with small bowel obstruction, history of laparotomy for perforated appendicitis and robotic sigmoidectomy for diverticulitis. NG tube placed and 2 L immediately returned, since then has had minimal output and has been taking ice chips. His abdomen feels much better. He has not passed flatus yet. On exam he is afebrile with stable vitals. NG tube with minimal output. Abdomen soft, minimally distended, nontender. Multiple scars. KUB with persistent small bowel dilation consistent with obstruction. Given his significant improvement in symptoms, we will continue with NG tube until he has return of flatus. No surgical indication at this time. Surgical continue to follow, call with questions or concerns Subjective Patient reports feeling well. Denies current pain or nausea. No recent flatus or BM Physical Exam Physical Exam: awake/alert, no distress Respiratory: normal respiratory effort Gastrointestinal (Abdomen): Inspection/Auscultation: + abdomen distended (mild) Percussion/Palpation: + abdomen tender (mild general discomfort to palpation, no overt tenderness) and abdomen soft; no guarding Results & Data Vital Signs (Past 12 Hours) Vital Signs Temp Pulse Resp BP Pulse Ox O2 Del Method 06/10/23 07:16 98.2 F 65 14 148/78 H 92 Room Air 06/10/23 00:39 Room Air PG Care Time/CCT Total # of Minutes Spent Total Time Spent with Patient: Total time spent is greater than 50% in coordination of care (as documented) at patient's floor/unit and/or counseling patient: Coding Level of Care Code 05632 SUB INP/OBS CARE 25MIN Diagnoses Small bowel obstruction K56.609
--- NOTE | 2023-06-10 15:15 | Hospitalist Progress Note ---
Date of Service June 10, 2023 Assessment & Plan (1) Small bowel obstruction: Plan: This is a 73-year-old male with past medical history significant for asthma/copd?, hypertension, hyperlipidemia, hypothyroidism, history of ruptured appendicitis, history of recurrent diverticulitis s/p colectomy presents with abdominal pain since Wednesday morning 3 AM and was found to have high grade small bowel obstruction. Small bowel obstruction CT scan showing high-grade small bowel obstruction Clinically improving with NG tube Repeat KUB this morning with dilated gas-filled loops of small bowel have slightly progressed consistent with the patient's known small bowel obstruction. IV fluids, IV Tylenol as needed, IV antiemetics as needed Gen surg consulted - keep NGT in place until meaningful return of bowel function, improving Follow KUB in a.m. Hypertension Holding losartan until able to take p.o. IV hydralazine as needed GABRIELA Cr 1.55 -> 1.44 avoid nephrotoxic agents continue fluids repeat BMP in AM Hyperlipidemia Holding statin for now History of asthma/COPD Continue home inhalers as needed Currently stable Hypothyroidism Holding p.o. Synthyroid and restart when able to take p.o. If n.p.o. status prolonged will change to IV Synthroid Mild hypercalcemia -> resolved possibly from dehydration Hx of recurrent diverticulitis S/p surgery by Dr.Neil Darius Borges at [facility]. Total bilirubin 1.5 ast,alt and alk phosp ok Will repeat CMP tomorrow DVT prophylaxis Heparin subcu Disposition Medical floor Full code Patient seen in collaboration with Dr. Madden. Please see addendum. I spent a total of 50 minutes coordinating, documenting, and providing care for this patient excluding time spent in the performance of separately billed services. Admission and Anticipated Discharge Date Admission Date: June 09, 2023 Supervising Physician Co-Signing Physician Notes Patient is seen and examined at bedside. Nausea, vomiting resolved. Abdominal pain much improved after NG tube placement. Denies any chest pain, dyspnea, dizziness. On exam patient is moderately built and nourished, no apparent distress, normocephalic atraumatic, + NG tube, EOMI, normal breath sounds, clear to auscultation,S1-S2, no audible murmur, no pedal edema, abdomen mildly firm, mildly distended, mild tenderness, decreased bowel sounds, no guarding or rigidity, alert, awake, oriented, grossly no focal deficits. Patient is being treated for small bowel obstruction secondary to adhesions from prior surgery. Continue conservative management with NG tube, bowel rest, IV fluids, encourage ambulation. Appreciate surgery input. Monitor and replete electrolytes as needed. Pain control. I personally interviewed and examined at bedside. Patient's care is coordinated with Dennise Carlisle PA-C. I have reviewed the advanced practitioner's documentation, and I agree with, and take responsibility for that plan of care. Please refer to the documentation above for details of patient's presentation and for discussion of other issues. I spent a total [id number] coordinating, documenting, and providing care for this patient excluding time spent in the performance of separately billed services. Subjective Patient seen in 387 bed 1 in follow-up for small bowel obstruction. Feeling significantly better with NG tube in place. Has been sitting up working on his computer this morning. Denies any pain, nausea or vomiting. Not passing flatus. No fever, chills, lightheadedness, chest pain, shortness of breath, dysuria. Review of Systems Review of Systems: At least ten systems reviewed and negative except as noted in the HPI. Physical Exam Physical Exam: Gen: WD/WN, NAD, sitting at side of bed working on computer, A&Ox3 HEENT: Normocephalic, atraumatic, conjunctivae moist, sclerae anicteric, mucous membranes moist Lung: Clear to Auscultation bilaterally, no wheezes/rales/rhonchi Heart: Regular rate, regular rhythm, no murmurs, rubs, or gallops Abdomen: Soft, some lower abdominal TTP, distended, +BS x 4 Extremities: no edema Skin: Warm, no rash Results & Data Results & Data Vital Signs (Past 12 Hours) Vital Signs Temp Pulse Resp BP Pulse Ox O2 Del Method 06/10/23 07:16 36.8 C 65 14 148/78 H 92 Room Air Laboratory Results Short CBC 06/09/23 06/10/23 Range/Units 16:09 06:12 WBC 13.13 H 8.31 (4.8-10.8) K/ul Hgb 15.7 12.4 L D (14.0-18.0) g/dl Hct 46.1 36.7 L (42.0-52.0) % Plt Count 279 214 (130-400) K/uL BMP 03/13/24 03/14/24 16:09 06:12 Sodium 137 141 Potassium 4.5 3.5 D Chloride 99 105 Carbon Dioxide 28 30 BUN 25 H 27 H Creatinine 1.55 H 1.44 H Glucose 134 H 132 H Calcium 10.5 H 8.6 Liver Function 06/09/23 Range/Units 16:09 Total Bilirubin 1.5 H (0.2-1.0) mg/dl AST 19 (13-39) U/L ALT 18 (7-52) U/L Alkaline Phosphatase 47 (34-104) U/L Albumin 4.7 (3.4-5.0) gm/dl Diagnostic Findings Abdomen/Pelvis CT 06/09/23 15:[address] WITH IV CONTRAST CT DOSE: 1272.93 mGy.cm HISTORY: Acute generalized abdominal pain Abd pain, h/o diverticulitis TECHNIQUE: Multiaxial CT images of the abdomen and pelvis were performed following the IV administration of 92 cc of Optiray, A dose lowering technique was utilized adhering to the principles of ALARA. COMPARISON STUDY: None. FINDINGS: Mild atelectasis of the lung bases. No free air. Spleen, mildly atrophic pancreas and adrenal glands. Unremarkable gallbladder. The liver is within normal limits. Patency of the hepatic and portal veins. Mild nonspecific bilateral perinephric stranding. No hydronephrosis. Prostatomegaly. Mild bladder wall thickening with partial distention. Atherosclerosis of the aorta and branch vessels. No lymphadenopathy. Distal esophageal wall thickening. The stomach is fluid-filled and distended. High-grade small bowel obstruction with air and fluid-filled dilated loops of small bowel measuring up to 5.7 cm. Trace ascites. Colonic diverticulosis. Anastomosis of the sigmoid colon. Appendectomy. Transition point of the small bowel obstruction is present within the abdominal right lower quadrant on image 283, likely on the basis of adhesions with decompressed loops seen distally. Anterior abdominal wall herniorrhaphy. Tiny fat filled umbilical hernia. Lumbar levoscoliosis. No acute fracture. IMPRESSION: 1. High-grade small bowel obstruction with the transition point within the abdominal right lower quadrant, likely on the basis of adhesions. Trace ascites with mild interloop edema. 2. No pneumatosis or pneumoperitoneum. 3. Incidental findings as above. ACT 112: Negative or not required by law. The above report was generated using voice recognition software. It may contain grammatical, syntax or spelling errors. Electronically signed by: Manuel Oneal M.D. 06/09/2023 6:54 PM KUB X-Ray 06/09/23 20:03 KUB HISTORY: Status post placement of an enteric tube for nj tube COMPARISON: CT 06/09/2023 FINDINGS: Status post placement of enteric tube with distal tip projected over the gastric body. Air filled stomach. Persistent small bowel obstruction. Contrast noted within the renal collecting systems, ureters and urinary bladder. No renal calculi. No ureteral calculi. No pneumoperitoneum or pneumatosis. Lumbar levoscoliosis. No fracture. IMPRESSION: 1. Status post placement of an enteric tube with distal tip projected over the gastric body. 2. Persistent small bowel obstruction. ACT 112: Negative or not required by law. The above report was generated using voice recognition software. It may contain grammatical, syntax or spelling errors. Electronically signed by: Manuel Oneal M.D. 06/10/2023 7:19 AM KUB X-Ray 06/10/23 08:00 KUB HISTORY: Small bowel obstruction. Follow-up. COMPARISON: KUB 06/09/2023. FINDINGS: The nasogastric tube remains within the stomach. Dilated gas-filled loops of small bowel have slightly progressed consistent with the patient's history of a small bowel obstruction. The lung bases are clear. Rectosigmoid aashish stomosis again noted. Contrast seen within the bladder from the recent CT examination. No renal calculi. No ureteral calculi. No pneumoperitoneum or pneumatosis. IMPRESSION: 1. Dilated gas-filled loops of small bowel have slightly progressed consistent with the patient's known small bowel obstruction. 2. Nasogastric tube remains within the stomach. ACT 112: Negative or not required by law. Electronically signed by: Edouard Martini M.D. 06/10/2023 9:06 AM
[2023-06-11 06:42] LABS: Appearance Urine Clear (Clear); Bacteria Urine Automated Negative (Negative); Bilirubin Urine Negative (Negative); Blood Urine Negative (Negative); Color Urine Dark Yellow; Epithelial Cell Urine Auto >30 /lpf (0-5); Glucose Urine UA Negative (Negative); Ketones Urine Negative (Negative); Leukocyte Esterase Urine Negative (Negative); Nitrite Urine Negative (Negative); RBC Urine Automated 0-4 /hpf (0-4); Specific Gravity Urine 1.028 (1.000-1.030); Urobilinogen Urine Negative (Negative); pH Urine 7.5 (4.5-7.5)
[2023-06-11 07:01] LABS: Protein Urine Trace (Negative)
[2023-06-11 07:03] LABS: Hematocrit (blood only) 38.3 % (42.0-52.0); Hemoglobin 12.8 g/dl (14.0-18.0); Mean Corpuscular Hemoglobin 31.7 pg (25.0-34.0); Mean Corpuscular Hgb Conc 33.4 g/dL (32.0-36.0); Mean Corpuscular Volume 94.8 fL (80.0-100.0); Platelet Count 211 K/uL (130-400); RDW Coefficient of Variation 13.3 % (11.5-14.5); RDW Standard Deviation 47.1 fL (36.4-46.3); Red Blood Count 4.04 M/uL (4.70-6.10); White Blood Count 6.96 K/ul (4.8-10.8)
[2023-06-11 07:38] LABS: Albumin Level 3.6 gm/dl (3.4-5.0); BUN Creatinine Ratio 19.1 (10-20); Bilirubin Direct 0.2 mg/dl (0-0.2); Bilirubin,Total 0.8 mg/dl (0.2-1.0); Calcium 8.8 mg/dl (8.6-10.3); Creatinine Clr Calc Pharmacy 54.6 ml/min; Est GFR (African American) 62.2 ml/min; Est GFR (Non-African American) 53.6 ml/min; Magnesium 2.1 mg/dl (1.7-2.4); Phosphorus 3.2 mg/dl (2.5-4.9); Potassium 4.1 mmol/L (3.5-5.1)
--- NOTE | 2023-06-11 08:51 | Surgery Progress Note ---
Date of Service June 11, 2023 Assessment & Plan (1) Small bowel obstruction: Plan: No BM No flatus today Encouraged ambulation NG tube 150ml in last 12 hr KUB ordered for today , not taken yet VSS Will continue to monitor Can start clears after better return of bowel function, and +flatus Admission and Anticipated Discharge Date Admission Date: June 09, 2023 Supervising Physician Co-Signing Physician Notes Pnt s&e, labs and imaging reviewed, agree with above. SBO, passed small amount of flatus yest but none today. Stomach sore but no pain like before. Minimal bloating. AFVSS, nad, aaox3. Abd soft, nt, mild distention, maybe increased from yesterday. Labs unremarkable. KUB personally reviewed, agree with continued small bowel dilation. Will continue with non operative management. Dr. Hernandez covering over weekend. 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 Subjective denies abd pain, just soreness no n/v, f/c passed sm amt flatus yester. none today Review of Systems Constitutional: no fever and no chills Respiratory: no dyspnea Cardiovascular: no chest pain Gastrointestinal: + abdominal pain (sore) and + bloating; no nausea and no vomiting Musculoskeletal: no muscle weakness Integumentary: no rash Physical Exam Physical Exam: alert oriented pleasant Constitutional: cooperative and comfortable; no acute distress Respiratory: normal respiratory effort and able to speak in complete sentences; no respiratory distress Cardiovascular: Rate/Rhythm: regular rate Gastrointestinal (Abdomen): Inspection/Auscultation: + abdomen distended Percussion/Palpation: + abdomen tender and abdomen soft; no guarding Musculoskeletal: no cyanosis or clubbing, extremities motor strength 5/5 Psychiatric: A+Ox3, euthymic affect Results & Data Vital Signs (Past 12 Hours) Vital Signs Temp Pulse Resp BP BP Pulse Ox O2 Del Method 06/11/23 07:26 97.5 F L 61 18 171/85 H 93 Room Air 06/10/23 21:03 98.1 F 58 L 16 168/78 H 94 Room Air Results Complete Blood Count Results: RBC 4.04 M/uL (4.70-6.10) L 06/11/23 WBC 6.96 K/ul (4.8-10.8) 06/11/23 Hgb 12.8 g/dl (14.0-18.0) L 06/11/23 Hct 38.3 % (42.0-52.0) L 06/11/23 Plt Count 211 K/uL (130-400) 06/11/23 Results CMP Results: Na 141 mmol/L (136-145) 06/11/23 K 4.1 mmol/L (3.5-5.1) 06/11/23 Cl 107 mmol/L (98-107) 06/11/23 CO2 29 mmol/L (21-32) 06/11/23 Anion Gap 5 (3-11) 06/11/23 BUN 25 mg/dl (6-23) H 06/11/23 Creatinine 1.31 mg/dl (0.6-1.4) 06/11/23 Estimated GFR ( Amer) 62.2 ml/min 06/11/23 Estimated GFR (Non-Af Amer) 53.6 ml/min 06/11/23 BUN/Creatinine Ratio 19.1 (10-20) 06/11/23 Glu 116 mg/dl (70-99(Fasting)) H 06/11/23 Ca 8.8 mg/dl (8.6-10.3) 06/11/23 Phosphorus Level 3.2 mg/dl (2.5-4.9) 06/11/23 Total Bilirubin 0.8 mg/dl (0.2-1.0) 06/11/23 Direct Bilirubin 0.2 mg/dl (0-0.2) 06/11/23 AST 17 U/L (13-39) 06/11/23 ALT 16 U/L (7-52) 06/11/23 Alkaline Phosphatase 33 U/L (34-104) L 06/11/23 TP 6.0 gm/dl (6.0-8.3) 06/11/23 Albumin 3.6 gm/dl (3.4-5.0) 06/11/23 Globulin 3.3 gm/dl (2.5-4.0) 06/09/23 Albumin/Globulin Ratio 1.4 (0.9-2) 06/09/23 PG Care Time/CCT Total # of Minutes Spent Total Time Spent with Patient: Total time spent is greater than 50% in coordination of care (as documented) at patient's floor/unit and/or counseling patient: Coding Level of Care Code 34605 SUB INP/OBS CARE 04/22MIN Diagnoses Small bowel obstruction K56.609
--- NOTE | 2023-06-11 10:02 | XRay Report ---
KUB CLINICAL HISTORY: Small bowel obstruction. COMPARISON STUDY: CT of the abdomen and pelvis June 09, 2023. KUB June 10, 2023. FINDINGS: Tip of nasogastric within the body of the stomach. Multiple dilated loops of small bowel ar e similar to prior exam. The findings represent a persistent small bowel obstruction. There is no serafin dence for free air on supine exam. IMPRESSION: 1. Findings consistent with a persistent small bowel obstruction. 2. Appropriately positioned nasogastric tube. ACT 112: Negative or not required by law. Electronically signed by: Oli Celaya M.D. 06/11/2023 10:01 AM
--- NOTE | 2023-06-11 14:52 | Hospitalist Progress Note ---
Date of Service June 11, 2023 Assessment & Plan (1) Small bowel obstruction: Plan: This is a 73-year-old male with past medical history significant for asthma/copd?, hypertension, hyperlipidemia, hypothyroidism, history of ruptured appendicitis, history of recurrent diverticulitis s/p colectomy presents with abdominal pain since Wednesday morning 3 AM and was found to have high grade small bowel obstruction. Small bowel obstruction CT scan showing high-grade small bowel obstruction Clinically improving with NG tube but no flatus today Repeat KUB this morning with findings consistent with a persistent small bowel obstruction IV fluids, IV Tylenol as needed, IV antiemetics as needed Encouraged ambulation in the halls Gen surg consulted - keep NGT in place until meaningful return of bowel function, improving. If no significant gas prover weekend, then contrasted study Wednesday or Wednesday Hypertension Holding losartan until able to take p.o. IV hydralazine as needed GABRIELA Cr 1.55 -> 1.44 -> 1.31 (no outpatient labs, baseline unknown) avoid nephrotoxic agents continue fluids repeat BMP in AM Hyperlipidemia Holding statin for now History of asthma/COPD Continue home inhalers as needed Currently stable Hypothyroidism Holding p.o. Synthyroid Will start IV Synthroid tomorrow AM until able to tolerate PO Mild hypercalcemia -> resolved possibly from dehydration Hx of recurrent diverticulitis S/p surgery by Dr.Neil Darius Borges at [place] DVT prophylaxis Heparin subcu Disposition Medical floor Full code Patient seen in collaboration with Dr. Dugan. Please see addendum. I spent a total of 35 minutes coordinating, documenting, and providing care for this patient excluding time spent in the performance of separately billed services. Admission and Anticipated Discharge Date Admission Date: June 09, 2023 Supervising Physician Co-Signing Physician Notes I have seen and discussed the case with the collaborating advanced practitioner. I agree with the above H&P. I have reviewed and confirmed the patients medical history, the findings on physical examination, and the patients diagnosis and treatment plan with Orestes CERVANTES and agree with the information documented. In short, Mr. Garcia is a 73-year-old male with past medical history significant for asthma/copd?, hypertension, hyperlipidemia, hypothyroidism, history of ruptured appendicitis, history of recurrent diverticulitis s/p colectomy presented on 06/08 with abdominal pain since Wednesday morning 3 AM and was found to have high grade small bowel obstruction. Patient with NGT in place with notable output of 875 in 24 hours. General surgery following, still pending improvement with conservative measures; however, plan for contrasted study if no progress over weekend. EXAM with notably protuberant abdomen, nontender, highpitched bowel sounds in upper quadrants, minimal llq. continue NGT to LIS, IVF, conservative measures per surgery. Rest of plan as above I spent a total of 25 minutes coordinating, documenting, and providing care for this patient excluding time spent in the performance of separately billed services. All of the aforementioned completed outside of collaborating with the assigned advanced practitioner for a full treatment plan. I have reviewed the advanced practitioner's documentation, and I agree with, and take responsibility for the plan of care Subjective Patient seen in 387 bed 1 in follow-up for small bowel obstruction. Continues to feel improved, still with NG tube in place. Passed a small amount of flatus last evening but none today. Has been sitting up working on his computer this morning and has plans to walk in the halls today. Denies any pain, nausea or vomiting. No fever, chills, lightheadedness, chest pain, shortness of breath, dysuria. Review of Systems Review of Systems: At least ten systems reviewed and negative except as noted in the HPI. Physical Exam Physical Exam: Gen: WD/WN, NAD, sitting at side of bed working on computer, A&Ox3 HEENT: Normocephalic, atraumatic, conjunctivae moist, sclerae anicteric, mucous membranes moist Lung: Clear to Auscultation bilaterally, no wheezes/rales/rhonchi Heart: Regular rate, regular rhythm, no murmurs, rubs, or gallops Abdomen: Soft but distended, non-tender, no guarding, decreased bowel sounds Extremities: no edema Skin: Warm, no rash Results & Data Results & Data Vital Signs (Past 12 Hours) Vital Signs Temp Pulse Pulse Resp BP Pulse Ox O2 Del Method 06/11/23 12:06 36.5 C 64 16 158/78 H 95 Room Air 06/11/23 07:26 36.4 C L 61 18 171/85 H 93 Room Air Laboratory Results Short CBC 06/11/23 Range/Units 06:25 WBC 6.96 (4.8-10.8) K/ul Hgb 12.8 L (14.0-18.0) g/dl Hct 38.3 L (42.0-52.0) % Plt Count 211 (130-400) K/uL BMP 06/11/23 06:25 Sodium 141 Potassium 4.1 Chloride 107 Carbon Dioxide 29 BUN 25 H Creatinine 1.31 Glucose 116 H Calcium 8.8 Liver Function 06/11/23 Range/Units 06:25 Total Bilirubin 0.8 D (0.2-1.0) mg/dl Direct Bilirubin 0.2 (0-0.2) mg/dl AST 17 (13-39) U/L ALT 16 (7-52) U/L Alkaline Phosphatase 33 L (34-104) U/L Albumin 3.6 (3.4-5.0) gm/dl Urine 06/11/23 Range/Units 06:11 Urine Color Dark Yellow Urine Appearance Clear (Clear) Urine pH 7.5 (4.5-7.5) Ur Specific [place] 1.028 (1.000-1.030) Urine Protein Trace H (Negative) Urine Glucose (UA) Negative (Negative) Diagnostic Findings Abdomen/Pelvis CT 06/09/23 15:[address] WITH IV CONTRAST CT DOSE: 1272.93 mGy.cm HISTORY: Acute generalized abdominal pain Abd pain, h/o diverticulitis TECHNIQUE: Multiaxial CT images of the abdomen and pelvis were performed following the IV administration of 92 cc of Optiray, A dose lowering technique was utilized adhering to the principles of ALARA. COMPARISON STUDY: None. FINDINGS: Mild atelectasis of the lung bases. No free air. Spleen, mildly atrophic pancreas and adrenal glands. Unremarkable gallbladder. The liver is within normal limits. Patency of the hepatic and portal veins. Mild nonspecific bilateral perinephric stranding. No hydronephrosis. Prostatomegaly. Mild bladder wall thickening with partial distention. Atherosclerosis of the aorta and branch vessels. No lymphadenopathy. Distal esophageal wall thickening. The stomach is fluid-filled and distended. High-grade small bowel obstruction with air and fluid-filled dilated loops of small bowel measuring up to 5.7 cm. Trace ascites. Colonic diverticulosis. Anastomosis of the sigmoid colon. Appendectomy. Transition point of the small bowel obstruction is present within the abdominal right lower quadrant on image 283, likely on the basis of adhesions with decompressed loops seen distally. Anterior abdominal wall herniorrhaphy. Tiny fat filled umbilical hernia. Lumbar levoscoliosis. No acute fracture. IMPRESSION: 1. High-grade small bowel obstruction with the transition point within the abdominal right lower quadrant, likely on the basis of adhesions. Trace ascites with mild interloop edema. 2. No pneumatosis or pneumoperitoneum. 3. Incidental findings as above. ACT 112: Negative or not required by law. The above report was generated using voice recognition software. It may contain grammatical, syntax or spelling errors. Electronically signed by: Manuel Oneal M.D. 06/09/2023 6:54 PM KUB X-Ray 06/09/23 20:03 KUB HISTORY: Status post placement of an enteric tube for nj tube COMPARISON: CT 06/09/2023 FINDINGS: Status post placement of enteric tube with distal tip projected over the gastric body. Air filled stomach. Persistent small bowel obstruction. Contrast noted within the renal collecting systems, ureters and urinary bladder. No renal calculi. No ureteral calculi. No pneumoperitoneum or pneumatosis. Lumbar levoscoliosis. No fracture. IMPRESSION: 1. Status post placement of an enteric tube with distal tip projected over the gastric body. 2. Persistent small bowel obstruction. ACT 112: Negative or not required by law. The above report was generated using voice recognition software. It may contain grammatical, syntax or spelling errors. Electronically signed by: Manuel nOeal M.D. 06/10/2023 7:19 AM KUB X-Ray 06/10/23 08:00 KUB HISTORY: Small bowel obstruction. Follow-up. COMPARISON: KUB 06/09/2023. FINDINGS: The nasogastric tube remains within the stomach. Dilated gas-filled loops of small bowel have slightly progressed consistent with the patient's history of a small bowel obstruction. The lung bases are clear. Rectosigmoid anastomosis again noted. Contrast seen within the bladder from the recent CT examination. No renal calculi. No ureteral calculi. No pneumoperitoneum or pneumatosis. IMPRESSION: 1. Dilated gas-filled loops of small bowel have slightly progressed consistent with the patient's known small bowel obstruction. 2. Nasogastric tube remains within the stomach. ACT 112: Negative or not required by law. Electronically signed by: Edouard Martini M.D. 06/10/2023 9:06 AM KUB X-Ray 06/11/23 07:00 KUB CLINICAL HISTORY: Small bowel obstruction. COMPARISON STUDY: CT of the abdomen and pelvis June 09, 2023. KUB June 10, 2023. FINDINGS: Tip of nasogastric within the body of the stomach. Multiple dilated loops of small bowel are similar to prior exam. The findings represent a persistent small bowel obstruction. There is no evidence for free air on supine exam. IMPRESSION: 1. Findings consistent with a persistent small bowel obstruction. 2. Appropriately positioned nasogastric tube. ACT 112: Negative or not required by law. Electronically signed by: Oli Celaya M.D. 06/11/2023 10:01 AM
[2023-06-11] MEDS: LIDOCAINE 5% 1 PATCH TD SCH (16:45)
[2023-06-11] MEDS: ACETAMINOPHEN 1,000 MG/100 ML VIAL IV PRN (17:43)
[2023-06-12 07:30] LABS: Hematocrit (blood only) 36.2 % (42.0-52.0); Hemoglobin 12.1 g/dl (14.0-18.0); Mean Corpuscular Hgb Conc 33.4 g/dL (32.0-36.0); Mean Corpuscular Volume 95.8 fL (80.0-100.0); Mean Platelet Volume 11.2 fL (9.4-12.4); Platelet Count 191 K/uL (130-400); Red Blood Count 3.78 M/uL (4.70-6.10); White Blood Count 5.54 K/ul (4.8-10.8)
[2023-06-12 07:48] LABS: BUN Creatinine Ratio 16.4 (10-20); Calcium 8.4 mg/dl (8.6-10.3); Creatinine Clr Calc Pharmacy 61.6 ml/min; Est GFR (Non-African American) 62.1 ml/min; Potassium 4.2 mmol/L (3.5-5.1)
[2023-06-12] MEDS: LEVOTHYROXINE SODIUM 25 MCG in SYRINGE 0 ML IV SCH (09:00)
--- NOTE | 2023-06-12 09:45 | Surgery Progress Note ---
Date of Service June 12, 2023 Assessment & Plan (1) Small bowel obstruction: Plan: Started having BM this AM Denies abd pain, n/v NG tube- will clamp and start on clear liquid diet If tolerating diet , NG may be removed VSS WBC wnl KUB tomorrow AM as above. doing much better. multiple loose bm's. will start clears but keep ngt in. can remove later today/tomorrow if he continues to do well. Admission and Anticipated Discharge Date Admission Date: June 09, 2023 Subjective pt reports multiple BMs this AM Denies abd pain No n/v Review of Systems Constitutional: no fever and no chills Ear, Nose, Mouth, Throat: no hearing loss Respiratory: no dyspnea Cardiovascular: no chest pain Gastrointestinal: no abdominal pain, no nausea and no vomiting Musculoskeletal: no muscle weakness Integumentary: no rash Physical Exam Physical Exam: alert oriented pleasant Constitutional: cooperative and comfortable; no acute distress Respiratory: normal respiratory effort and able to speak in complete sentences; no respiratory distress Cardiovascular: Rate/Rhythm: regular rate Gastrointestinal (Abdomen): Inspection/Auscultation: + abdomen distended Percussion/Palpation: + abdomen tender and abdomen soft; no guarding Musculoskeletal: no cyanosis or clubbing, extremities motor strength 5/5 Psychiatric: A+Ox3, euthymic affect Results & Data Vital Signs (Past 12 Hours) Vital Signs Temp Pulse Resp BP Pulse Ox O2 Del Method 06/12/23 07:28 98.1 F 66 20 152/79 H 94 Room Air PG Care Time/CCT Total # of Minutes Spent Total Time Spent with Patient: Total time spent is greater than 50% in coordination of care (as documented) at patient's floor/unit and/or counseling patient: Coding Level of Care Code 73033 SUB INP/OBS CARE 04/22MIN Diagnoses Small bowel obstruction K56.609
--- NOTE | 2023-06-12 11:01 | Hospitalist Progress Note ---
Date of Service June 12, 2023 Assessment & Plan (1) Small bowel obstruction: Plan: Mr. Garcia 73-year-old gentleman with past medical history significant for asthma/copd, hypertension, hyperlipidemia, hypothyroidism, prior ruptured appendicitis, prior recurrent diverticulitis s/p colectomy who was admitted on 06/08 with abdominal pain since Wednesday morning 3 AM and was found to have high grade small bowel obstruction. NGT was placed. Patient was noted to pass flatus on 06/09, however, with notable NG output over the evening of the . Patient reported further flatus on 06/10 in the evening with bowel movement on 06/11 am. Plan for CLD today with hopes to remove NGT if diet is tolerated. #Small bowel obstruction #Hx of recurrent diverticulitis s/p sigmoidectomy #Prior ruptured appendicitis S/p surgery by Dr.Neil Darius Borges at [place] CT scan showing high-grade small bowel obstruction; Repeat KUB 06/10 with findings consistent with a persistent small bowel obstruction bowel movement on 06/11 morning -Continue IV fluids, IV Tylenol as needed, IV antiemetics as needed -Encouraged continued ambulation in the [place] Gen surg consulted - CLD diet today with plans to remove if diet tolerated - KUB in am #Normocytic anemia -No signs of bleeding reported, Hgb 15 on admission down and plateaued at 12--suspect component of hemodilution from IVF -Anemia studies in am for any opportunity for optimization #Chronic low back pain #Hx of sciatica -Reports low back pain, reluctant for analgesia, discussed options: IV tylenol, lidocaine patches -Trial of lidocaine patches at this time #Hypertension Holding losartan until able to take p.o. IV hydralazine as needed Will plan to resume low dose losartan 25mg in am contingent upon dietary intake/progress #GABRIELA, resolved Cr 1.55 -> 1.44 -> 1.31 ->> 1.16 avoid nephrotoxic agents continue fluids repeat BMP in AM #Hyperlipidemia Holding statin for now Resume likely tomorrow contingent on CLD tolerance #History of asthma/COPD #Prior tobacco use COPD class A, chronic cough Continue home inhalers as needed Currently stable #Hypothyroidism Holding p.o. Synthyroid Will start IV Synthroid tomorrow AM until able to tolerate PO -Resume PO synthroid in am contingent on CLD tolerance #Mild hypercalcemia -> resolved possibly from dehydration DVT prophylaxis Heparin subcu Disposition Medical floor Full code Admission and Anticipated Discharge Date Admission Date: June 09, 2023 Subjective Patient evaluated at bedside Reports notable excitement given multiple bowel movements throughout the course of this morning, with flatus noted throughout the evening. Patient reports subjective improvement in abdominal bloating Denies nausea, vomiting, or acute concerns at time of exam Physical Exam Constitutional: WD/WN, vitals as above Respiratory: normal respiratory effort, lungs clear to auscultation Cardiovascular: RRR, no murmur, no edema Gastrointestinal (Abdomen): distended, but soft abdomen in comparison to prior exam; high pitched, high frequency bowel sounds now appreciated in all quadrants Results & Data Results & Data Vital Signs (Past 12 Hours) Vital Signs Temp Pulse Resp BP Pulse Ox O2 Del Method 06/12/23 07:28 36.7 C 66 20 152/79 H 94 Room Air Laboratory Results Short CBC 06/12/23 Range/Units 06:08 WBC 5.54 (4.8-10.8) K/ul Hgb 12.1 L (14.0-18.0) g/dl Hct 36.2 L (42.0-52.0) % Plt Count 191 (130-400) K/uL BMP 06/12/23 06:08 Sodium 139 Potassium 4.2 Chloride 110 H Carbon Dioxide 25 BUN 19 Creatinine 1.16 Glucose 126 H Calcium 8.4 L Medications Administered Home Medications Medication Instructions Recorded Confirmed Last Taken atorvastatin 10 mg tablet (Lipitor) 10 mg PO HS 05/21/21 06/09/23 06/08/23 levothyroxine 50 mcg tablet 50 mcg PO DAILY 05/21/21 06/09/23 06/09/23 (Synthroid) diorbtov-ho-wvenn 300 mcg-K 60 1 tab PO DAILY 05/21/21 06/09/23 06/09/23 mcg-lycop 600 mcg-lutein 300 mcg tablet (Centrum Silver Men) albuterol sulfate 90 mcg/actuation 2 puff inhalation Q6H PRN 09/23/21 06/09/23 Unknown aerosol inhaler Shortness Of Breath Or Wheezing #18 grams ciprofloxacin HCl 500 mg tablet 500 mg PO BID 06/09/23 06/09/23 06/09/23 08:00 fluticasone propionate 50 1 spray intranasal DAILY PRN 06/09/23 06/09/23 Unknown mcg/actuation nasal Congestion spray,suspension (Allergy Relief (fluticasone)) losartan 50 mg tablet 50 mg PO BID 06/09/23 06/09/23 06/09/23 08:00 meloxicam 15 mg tablet 15 mg PO DAILY PRN Pain 06/09/23 06/09/23 06/09/23 Active Medications Generic Name Dose Route Start Last Admin Trade Name Freq PRN Reason Stop Dose Admin Heparin Sodium (Porcine) 5,000 units 06/10/23 00:34 06/12/23 05:40 Heparin Sod 5,000 Unit/0.5 Ml Vial SQ 07/10/23 00:33 Not Given Q8 ISAURO Acetaminophen 1,000 mg in 100 mls @ 400 mls/hr 06/09/23 20:13 06/12/23 10:25 Ofirmev IV 06/12/23 20:12 400 mls/hr Q8H PRN Administration Pain or Fever Potassium Chloride/Dextrose/Sod Cl 20 meq in 1,000 mls @ 125 mls/hr 06/10/23 08:15 06/12/23 05:39 D5w And 1/2nss + 20meq Kcl IV 07/10/23 08:14 125 mls/hr .Q8H ISAURO Administration Levothyroxine Sodium 25 mcg/ 1.25 mls @ 2 mls/min 06/12/23 09:00 06/12/23 09:00 Syringe IV 07/12/23 08:59 2 mls/min Q3D@0900 ISAURO Administration Protocol Lidocaine 1 patch 06/11/23 16:00 06/12/23 10:24 Lidocaine 5% 1 Patch TD 07/11/23 15:59 1 patch QAM ISAURO Administration Miscellaneous 1 each 06/11/23 21:00 06/11/23 20:00 Remove Lidoderm Patch N/A 07/11/23 20:59 1 each DAILY@2100 ISAURO Administration
[2023-06-13] MEDS: ACETAMINOPHEN 325 MG TAB PO PRN (03:32)
[2023-06-13 06:07] LABS: Hematocrit (blood only) 35.3 % (42.0-52.0); Hemoglobin 11.7 g/dl (14.0-18.0); Mean Corpuscular Hgb Conc 33.1 g/dL (32.0-36.0); Mean Corpuscular Volume 96.4 fL (80.0-100.0); Mean Platelet Volume 10.7 fL (9.4-12.4); Platelet Count 178 K/uL (130-400); RDW Coefficient of Variation 12.8 % (11.5-14.5); Red Blood Count 3.66 M/uL (4.70-6.10); White Blood Count 4.71 K/ul (4.8-10.8)
[2023-06-13] MEDS: LEVOTHYROXINE SODIUM 50 MCG TABLET PO SCH (06:12)
[2023-06-13 06:24] LABS: BUN Creatinine Ratio 10.7 (10-20); Creatinine Clr Calc Pharmacy 69.4 ml/min; Est GFR (African American) 83.1 ml/min; Est GFR (Non-African American) 71.7 ml/min; Magnesium 1.9 mg/dl (1.7-2.4); Phosphorus 2.6 mg/dl (2.5-4.9); Potassium 4.4 mmol/L (3.5-5.1)
[2023-06-13 06:42] LABS: Ferritin 243.1 ng/ml (8-388)
[2023-06-13 06:49] LABS: Folate (Folic Acid),Ser orPlas > 22.30 ng/ml (>5.38); Vitamin B12 637 pg/ml (180-914)
--- NOTE | 2023-06-13 09:29 | XRay Report ---
KUB HISTORY: Small bowel obstruction. Follow-up. COMPARISON: KUB 06/11/2023. FINDINGS: The nasogastric tube has been removed in the interval. Dilated gas-filled loops of small brian wel again noted within the midabdomen. These are similar to the prior study. Small amount of gas with in the nondistended colon. Suture material within the deep pelvis. Mild levoscoliosis. No renal calc laura. No ureteral calculi. No pneumoperitoneum or pneumatosis. IMPRESSION: Persistent small bowel obstruction pattern. ACT 112: Negative or not required by law. Electronically signed by: Edouard Martini M.D. 06/13/2023 9:28 AM
[2023-06-13] MEDS: LOSARTAN POTASSIUM 25 MG TAB PO SCH (12:22)
--- NOTE | 2023-06-13 12:26 | Discharge Summary ---
Discharge Summary Date of Service June 13, 2023 Notes For Next Care Provider Medication Changes From Visit Losartan started slowly at 25mg, with discussion to resume full dosing upon resumption of standard diet Admission HPI Per Admitting Provider 73-year-old male with past medical history significant for asthma/copd?, hypertension, hyperlipidemia, hypothyroidism, history of ruptured appendicitis, history of recurrent diverticulitis s/p colectomy presents with abdominal pain since Wednesday morning 3 AM. Patient says Wednesday morning 3 woke up with severe abdominal pain 10/10 in severity. Pain was located in the lower abdomen and there was no radiation. At the time he had a bowel movement. Patient because of history of diverticulitis started taking Cipro. On Wednesday seems he was prescribed Cipro and he felt well . And again today morning pain started coming back associated with nausea which prompted him to come to the ER and found to have a high-grade small bowel obstruction. No bowel movement since last Wednesday and not passing any gas. Not eating since Wednesday morning.Was feeling cold and sweaty. Denies any headache. Recently had cough which resolved. Having back pain for last few days. No chest pain or shortness of breath. Normal micturition. No rash. Ambulates okay. Currently resting comfortably and hemodynamically stable. In the ER s/p NG tube and feeling much better. Past medical history. As mentioned above Past surgical history. Ruptured appendicitis. About 12 inch colectomy for recurrent diverticulitis. Seems incisional hernia repair. Social history. Smoked on and off for 50 years. Quit smoking 6 to 7 years ago. Alcohol social drinking. Family history. Father had cancer. Mother had heart disease and diabetes. Brother has diabetes. Admission Exam Per Admitting Provider General- Not in distress Head- atraumatic Eyes- PERRL. ENT- oropharynx clear Neck- supple, no JVD, no carotid bruit Lungs- clear to auscultation no wheezing or crackles. Heart- regular rate and rhythm; no murmur, no gallop. Abdomen- absent bowel sounds, soft, mild tenderness in middle lower abdomen.no guarding or rigidity, mild distension. Extremities- no pretibial edema, no erythema seen Neuro- alert, oriented ; PERRL, no facial palsy; no dysarthria; Skin- warm & dry Principal Dx & Hospital Course #1 = Principal Diagnosis (1) Small bowel obstruction: Mr. Garcia 73-year-old gentleman with past medical history significant for asthma/copd, hypertension, hyperlipidemia, hypothyroidism, prior ruptured appendicitis, prior recurrent diverticulitis s/p colectomy who was admitted on 06/08 with abdominal pain since Wednesday morning 3 AM and was found to have high grade small bowel obstruction. NGT was placed. Patient was noted to pass flatus on 06/09, however, with notable NG output over the evening of the . Patient reported further flatus on 06/10 in the evening with bowel movement on 06/11 am. Plan for CLD today with hopes to remove NGT if diet is tolerated. #Small bowel obstruction #Hx of recurrent diverticulitis s/p sigmoidectomy #Prior ruptured appendicitis S/p surgery by Dr.Neil Darius Borges at [place] [facility] scan showing high-grade small bowel obstruction; Repeat KUB 06/10 with findings consistent with a persistent small bowel obstruction bowel movement on 06/11 morning -Continue IV fluids, IV Tylenol as needed, IV antiemetics as needed -Encouraged continued ambulation in the halls Gen surg consulted - CLD diet today with plans to remove if diet tolerated - KUB in am: similar appearance to prior exams, however patient with return of bowel function; advance diet as tolerated #Normocytic anemia -No signs of bleeding reported, Hgb 15 on admission down and plateaued at 12--suspect component of hemodilution from IVF -Anemia studies stable; wnl #Chronic low back pain #Hx of sciatica -Reports low back pain, reluctant for analgesia, discussed options: IV tylenol, lidocaine patches Resume home regimen for pain control #Hypertension Holding losartan until able to take p.o. IV hydralazine as needed Resume low dose losartan 25mg and resume daily home regimen contingent upon dietary intake/progress and blood pressure at home #GABRIELA, resolved Cr 1.55 -> 1.44 -> 1.31 ->> 1.16 avoid nephrotoxic agents Encourage po intake #Hyperlipidemia Resume home statin #History of asthma/COPD #Prior tobacco use COPD class A, chronic cough Continue home inhalers as needed Currently stable #Hypothyroidism Holding p.o. Synthyroid Will start IV Synthroid tomorrow AM until able to tolerate PO Continue PO synthroid #Mild hypercalcemia -> resolved possibly from dehydration On day of discharge, patient was ambulating hallways without difficulty, eating well for allowed diet, and denying any pain or other symptoms. Patient with bowel movements/flatus. Discharge Exam Constitutional WD/WN, vitals as above Respiratory normal respiratory effort, lungs clear to auscultation Gastrointestinal (Abdomen) distended, but soft less protuberant than days prior Updated Medication List Medication Instructions Recorded Confirmed Type atorvastatin 10 mg tablet (Lipitor) 10 mg PO HS 05/21/21 06/09/23 History levothyroxine 50 mcg tablet 50 mcg PO DAILY 05/21/21 06/09/23 History (Synthroid) [id number] 300 mcg-K 60 1 tab PO DAILY 05/21/21 06/09/23 History mcg-lycop 600 mcg-lutein 300 mcg tablet (Centrum Silver Men) albuterol sulfate 90 mcg/actuation 2 puff inhalation Q6H PRN 09/23/21 06/09/23 Rx aerosol inhaler Shortness Of Breath Or Wheezing #18 grams fluticasone propionate 50 1 spray intranasal DAILY PRN 06/09/23 06/09/23 History mcg/actuation nasal Congestion spray,suspension (Allergy Relief (fluticasone)) losartan 50 mg tablet 50 mg PO BID 06/09/23 06/09/23 History meloxicam 15 mg tablet 15 mg PO DAILY PRN Pain 06/09/23 06/09/23 History Hospital Stay Data Consultations 06/09/23 20:03 ED Decision to Admit Stat 06/10/23 00:34 Consult General Surgery Routine Diagnostic Imagining Performed 06/09/23 15:01 CT abd pelvis IV con only Stat Pending Results Patient Have Any Pending Studies at Discharge: No Discharge Instructions Given to Patient (Per Discharging Provider) You were admitted for abdominal pain and distention--ultimately found to have small bowel obstruction given your history of multiple abdominal surgeries. You were managed conservatively with nasogastric suction and IV fluids. To date, you have had return of bowel function marked by multiple bowel movements and have tolerated clear liquid diet. You can slowly advanced your diet as tolerated, but it is recommended to take this very slowly--consider full liquids for the next day or so and progress to soft diet. The hope is to resume a regular/heart healthy diet in the coming days assuming your are still passing stool/gas. Consider adding miralax to your daily regimen to encourage on going bowel movements daily. Please resume your medications as previously prescribed with the following consideration. Your losartan was started on 06/12 at 25mg. If you check your pressures at home and they are consistently less than 130s (top number/systolic) please continue with 25mg two times daily; however, if you are tolerating your advanced diet and your blood pressures are back to your "normal" you can resume your previously prescribed 50mg two times daily. Total Time Total Time Spent Total Time Spent (In Minutes): 45
[2023-06-13] MEDS ORDERED: ATORVASTATIN 10 MG TAB PO SCH (21:00)
== END 2023-06-13 13:08 | disposition home or self-care (01) | DRG 389 ==
LOC: ED 14:42 → 3N 20:55 → SUATTDRO 20:55 → 3N 23:34